=== PATIENT | male | born 1960 | race Caucasian/White ===

== ENCOUNTER 2024-04-19 16:06 | Emergency (ER) | payer OTHER, SELFPAY ==
--- NOTE | 2024-04-19 16:09 | ED.GENMED ---
History of Present Illness
General
Chief Complaint: Change in Mental Status
Time Seen by Provider: 04/19/24 16:09
History of Present Illness
History of Present Illness:
HPI: I spoke to the ER nurse who spoke to EMS for history. We are told that the patient was at and then usually smokes up after the meeting, when he returned back to his place of residence ([facility]), he was found to be somewhat altered and
was sent here for further evaluation. The patient feels that his symptoms are related to marijuana use. He reports no new neurologic symptoms. He has had a stroke and the fact affecting his legs.
EXAM:
GENERAL: Well appearing in no distress
HEENT: Edentulous
CARDIOVASCULAR: No murmurs, normal heart rate, regular rhythm, No chest wall tenderness
PULMONARY: No respiratory distress, breath sounds are clear and equal
ABDOMEN: Soft with no peritoneal signs, no tenderness
NEUROLOGIC: Good strength all extremities, no coordination deficits, dysarthria noted however the patient has no teeth and does not currently have dentures, he is oriented to month and place
PSYCHIATRIC: Appropriate mental status, normal insight and judgement
EXTREMITIES: Nontender, no edema, decreased active range of motion to both lower extremities equally the patient states that the combination of pain and prior CVA
SKIN: No rash, no lesions
TIME OF INITIAL ENCOUNTER: 4:20 PM
NUMBER AND COMPLEXITY OF PROBLEMS ADDRESSED AT THE ENCOUNTER
� Chronic conditions affecting care: Has had CVA
� Acute Exacerbation and/or Progression of Chronic Illness: This is an acute problem
� Differential Diagnosis includes: Marijuana use, alcohol use, electrolyte abnormality, anemia, doubt infection
AMOUNT AND/OR COMPLEXITY OF DATA TO BE REVIEWED AND ANALYZED
� I performed an independent evaluation of and my interpretation is:
EKG:
CT:
X-rays:
Laboratory Studies: The patient's white blood cell count is normal, hemoglobin level is normal, transaminases slightly elevated, alcohol undetected
Other:
� Review of other/old records: No old records available for review in [facility]
� Clinical information was obtained by an independent historian: EMS
� Prescriptions/Medications Considered but not given:
� Further testing considered but not performed:
RISK OF COMPLICATIONS AND/OR MORBIDITY OR MORTALITY OF PATIENT MANAGEMENT
� Social determinants of health affecting care: Resides at [facility]
� Discussion with other providers:
� Escalation of care including admission/observation vs risk of discharge considered: The patient currently appears to be at his baseline from a neurologic standpoint. His dysarthria can be explained from lack of dentures. The
patient reports no new neurologic dysfunction. Labs relatively unremarkable, transaminases slightly elevated however the history of hep C. The patient reports no complaints or concerns. He has a nonfocal neurologic examination. Will plan
discharge back to [facility]. I reassessed the patient prior to discharge at around 5:30 PM and he has no ongoing concerns.
Phy Exam
Physical Exam
Physical Exam:
See HPI
Course
Orders/Labs/Results
Orders:
Orders
04/19/24 16:24
Alcohol Urgent
Complete Blood Count/With Diff Urgent
Comprehensive Metabolic Panel Urgent
Abnormal Lab Results
04/19/24
16:24
MCV 95.0 H fL
(80.0-94.0)
MCH 31.4 H pg
(27.0-31.0)
MPV 11.3 H fL
(7.4-10.4)
Absolute Lymphs (auto) 1.0 L 10^3/uL
(1.2-3.4)
Absolute Monos (auto) 0.9 H 10^3/uL
(0.1-0.6)
Monocytes % 17.8 H %
(1.7-9.3)
AST 99 H U/L
(17-59)
ALT 115 H U/L
(0-50)
04/19/24 16:24
04/19/24 16:24
Vital Signs
Initial and Last Documented VS:
Initial Vital Signs
Temp Pulse Resp Pulse Ox
98.3 F 75 13 97
04/19/24 16:10 04/19/24 16:10 04/19/24 16:10 04/19/24 16:10
Last Documented Vital Signs
Temp Pulse Resp BP Pulse Ox
98.3 F 73 13 123/80 97
04/19/24 16:10 04/19/24 17:45 04/19/24 16:10 04/19/24 16:18 04/19/24 17:45
*Critical Care Note
Total Time (30-74mins, 75-104mins- exclusive of procedures): Not Applicable
ED Attending Note
-
Portions of this chart may have been created with voice recognition software.� Occasional wrong word or��sound alike� substitutions may have occurred due to the inherent limitations of voice recognition software.
Discharge Plan
Departure
Patient Disposition: [facility]/SNF
Date of Disposition: 04/19/24
Time of Disposition: 17:26
Patient with high blood pressure during this ER visit?: Yes
Discharge Problem:
Acute alteration in mental status
Instructions: Altered Mental Status (DC)
Referrals:
Nannette Roca, DO [Family Provider] -
Activity Restrictions/Additional Instructions:
White blood cell count and hemoglobin levels are normal, basic labs are normal, transaminase levels are just slightly elevated but the rest of your liver numbers are normal. Alcohol level is undetected. Return here if worse.
Interventions
Interventions:
*Risk Screen - Suicide Last Done: 04/19/24 16:10
*General Assessment Last Done: 04/19/24 16:10
*Neglect/Abuse Screening Last Done: 04/19/24 16:10
*ED COVID-19 Vaccine History Last Done: 04/19/24 16:10
ED- Neurological Assessment Last Done: 04/19/24 16:10
Discharge Date and Time
Print Language: MOROCCAN
[2024-04-19 16:10] VITALS: BMI 29.6
[2024-04-19 16:18] VITALS: BP 123/80
[2024-04-19 16:46] LABS: % Basophils 0.4 % (0-2); % Eosinophils 2.4 % (0-6); % Immature Granulocytes 0.2 % (0-0.5); % Lymphocytes 20.7 % (20.5-51.1); % Monocytes 17.8 % (1.7-9.3); % Neutrophils 58.5 % (42.2-75.2); Absolute Eosinophils 0.1 10^3/uL (0-0.7); Absolute Monocytes 0.9 10^3/uL (0.1-0.6); Absolute Neutrophils 2.9 10^3/uL (1.4-6.5); Hematocrit 45.3 % (39.0-52.0); Mean Corp Hgb Conc. 33.1 g/dL (33.0-37.0); Mean Corpuscular Hgb 31.4 pg (27.0-31.0); Mean Platelet Volume 11.3 fL (7.4-10.4); Nucleated Red Blood Cells % 0 % (-); Platelet Count 141 10^3/uL (130-400); Red Blood Cell Count 4.77 10^6/uL (4.70-6.10); Red Cell Dist. Width 12.7 % (11.5-14.5); White Blood Cell Count 4.9 10^3/uL (4.8-10.8)
[2024-04-19 16:57] LABS: ALT (SGPT) 115 U/L (0-50); AST (SGOT) 99 U/L (17-59); Albumin 3.5 g/dl (3.5-5.0); Alkaline Phosphatase 93 U/L (38-126); Blood Urea Nitrogen 20 mg/dl (9-20); Calcium 9.2 mg/dl (8.4-10.2); Carbon Dioxide 30 mmol/L (22-30); Chloride 106 mmol/L (98-107); Estimated Creatinine Clearance 87 ml/min; Glucose 96 mg/dl (70-99); Potassium 4.8 mmol/L (3.5-5.1); Sodium 139 mmol/L (135-145); Total Bilirubin 0.6 mg/dl (0.2-1.3); Total Protein 6.9 g/dl (6.3-8.2); eGFR > 60.00
[2024-04-19 16:58] LABS: Alcohol None Detected
[2024-04-19 20:25] VITALS: BP 101/67
[2024-04-19 20:28] VITALS: BP 101/67
== END 2024-04-19 20:30 ==
LOC: EMR 16:06
PROVIDERS: EMERGENCY PHYSICIAN Emergency Medicine; FAMILY PHYSICIAN Hospitalist
DX: R41.82 Altered mental status, unspecified (principal); R03.0 Elevated blood-pressure reading, without diagnosis of hypertension; R47.1 Dysarthria and anarthria; Z86.73 Personal history of transient ischemic attack (TIA), and cerebral infarction without residual deficits; Z86.19 Personal history of other infectious and parasitic diseases
CPT/HCPCS: 99283; 80053; 82077; 85025